=== PATIENT | female | born 1940 | race Asian ===

== ENCOUNTER 2018-07-13 08:48 | Inpatient (IN) | payer OTHER ==
[2018-07-13 09:40] LABS: ADD MAN DIFF? NO
[2018-07-13 09:41] LABS: ABNORMAL IP MESSAGE 1; BASOPHILS % 0.5 % (0.0-2.0); EOSINOPHILS % 0.4 % (0.0-7.0); HEMATOCRIT 34.3 % (37.0-47.0); HEMOGLOBIN 11.6 g/dl (12.0-16.0); LYMPHOCYTES # 1.3 10^3/ul (0.8-2.9); LYMPHOCYTES % 17.3 % (15.0-51.0); MEAN CORPUSCULAR HEMOGLOBIN 30.3 pg (29.0-33.0); MEAN CORPUSCULAR HGB CONC 33.8 g/dl (32.0-37.0); MEAN CORPUSCULAR VOLUME 89.6 fl (82.0-101.0); MONOCYTE # 0.4 10^3/ul (0.3-0.9); MONOCYTES % 5.7 % (0.0-11.0); NEUTROPHIL # 5.6 10^3/ul (1.6-7.5); NEUTROPHILS % 75.8 % (39.0-77.0); PLATELET COUNT 109 10^3/UL (140-415); RED BLOOD COUNT 3.83 10^6/ul (4.20-5.40); RED CELL DISTRIBUTION WIDTH 13.3 % (11.5-14.5)
[2018-07-13 09:41] LABS: WHITE BLOOD COUNT 7.4 10^3/ul (4.8-10.8)
[2018-07-13 09:44] LABS: POSITIVE DIFF @See below
[2018-07-13 10:01] LABS: ANION GAP 8 (5-13); BLOOD UREA NITROGEN 21 mg/dl (7-20); CALCIUM 9.2 mg/dl (8.4-10.2); CARBON DIOXIDE 30 mmol/L (21-31); CHLORIDE 102 mmol/L (97-110); CREATININE 0.85 mg/dl (0.44-1.00); GLUCOSE 113 mg/dl (70-220); POTASSIUM 3.9 mmol/L (3.5-5.1); SODIUM 140 mmol/L (135-144)
[2018-07-13 10:12] LABS: TROPONIN-I < 0.012 ng/ml (0.000-0.120)
[2018-07-13] MEDS ORDERED: DOCUSATE SODIUM 100 MG CAP PO (10:30)
[2018-07-13] MEDS: METOPROLOL (XL) 50 MG TAB PO ×2 (10:30→10:33)
[2018-07-13] MEDS ORDERED: NITROGLYCERIN (SL) 0.4 MG TAB SL (10:30)
[2018-07-13] MEDS ORDERED: ACETAMINOPHEN 325 MG TAB PO ×2 (10:30→11:00)
[2018-07-13] MEDS ORDERED: morphine 2 MG INJ IV (10:30)
[2018-07-13] MEDS ORDERED: HYDROCODONE/APAP (5/325) TAB PO (10:30)
[2018-07-13] MEDS ORDERED: NACL 0.9% 3 ML SYG IV (10:30)
[2018-07-13] MEDS: DILTIAZEM (SR) 60 MG CAP PO (10:30)
[2018-07-13] MEDS ORDERED: ONDANSETRON 4 MG INJ IV ×2 (10:30→11:00)
[2018-07-13] MEDS: APIXABAN 5 MG TABLET PO ×2 (10:32→21:33)
[2018-07-13] MEDS: DILTIAZEM 30 MG TAB PO (10:33)
[2018-07-13] MEDS: DILTIAZEM (SR) 90 MG CAP PO (10:35)
[2018-07-13] MEDS ORDERED: DILTIAZEM (SR) 60 MG CAP PO (10:37)
[2018-07-13] MEDS ORDERED: DILTIAZEM 30 MG TAB PO (10:38)
[2018-07-13] MEDS: BENAZEPRIL 10 MG TAB PO (10:39)
[2018-07-13 16:33] LABS: CREATINE KINASE 84 IU/L (23-200)
[2018-07-13 16:46] LABS: CK INDEX 0.7; TROPONIN-I < 0.012 ng/ml (0.000-0.120)
[2018-07-13] MEDS ORDERED: CALCIUM CARBONATE 600 MG PO (21:00)
[2018-07-13] MEDS: FAMOTIDINE 20 MG TAB PO (21:33)
[2018-07-14 06:30] LABS: WHITE BLOOD COUNT 6.9 10^3/ul (4.8-10.8)
[2018-07-14 06:30] LABS: ABNORMAL IP MESSAGE 1; HEMATOCRIT 34.6 % (37.0-47.0); HEMOGLOBIN 11.5 g/dl (12.0-16.0); MEAN CORPUSCULAR HEMOGLOBIN 30.3 pg (29.0-33.0); MEAN CORPUSCULAR HGB CONC 33.2 g/dl (32.0-37.0); MEAN CORPUSCULAR VOLUME 91.1 fl (82.0-101.0); MEAN PLATELET VOLUME 12.3 fl (7.4-10.4); PLATELET COUNT 52 10^3/UL (140-415); RED CELL DISTRIBUTION WIDTH 13.7 % (11.5-14.5)
[2018-07-14 06:51] LABS: ADD MAN DIFF? YES; POSITIVE DIFF @See below
[2018-07-14 07:07] LABS: HEMOGLOBIN A1C 5.7 % (0-5.9)
[2018-07-14 07:09] LABS: ALANINE AMINOTRANSFERASE 10 IU/L (13-69); ALBUMIN 3.4 g/dl (3.3-4.9); ALBUMIN/GLOBULIN RATIO 1.25; ALKALINE PHOSPHATASE 43 IU/L (42-121); ANION GAP 8 (5-13); ASPARTATE AMINO TRANSFERASE 21 IU/L (15-46); BILIRUBIN,INDIRECT 0.5 mg/dl (0-1.1); BILIRUBIN,TOTAL 0.5 mg/dl (0.2-1.3); BLOOD UREA NITROGEN 19 mg/dl (7-20); CALCIUM 8.9 mg/dl (8.4-10.2); CARBON DIOXIDE 33 mmol/L (21-31); CHLORIDE 102 mmol/L (97-110); CHOL/HDL RATIO 3.3 RATIO; CHOLESTEROL 170 mg/dl (100-200); CREATININE 1.02 mg/dl (0.44-1.00); GLUCOSE 89 mg/dl (70-220); HDL CHOLESTEROL 51 mg/dl (33-92); LDL CHOLESTEROL,CALCULATED 102 mg/dl; MAGNESIUM 2.2 mg/dl (1.7-2.5); PHOSPHORUS 4.4 mg/dl (2.5-4.9); POTASSIUM 3.6 mmol/L (3.5-5.1); SODIUM 143 mmol/L (135-144); TOTAL PROTEIN 6.1 g/dl (6.1-8.1); TRIGLYCERIDES 87 mg/dl (0-149)
[2018-07-14] MEDS: FAMOTIDINE 20 MG TAB PO (08:23)
[2018-07-14] MEDS: APIXABAN 5 MG TABLET PO (08:23)
[2018-07-14] MEDS: METOPROLOL (XL) 50 MG TAB PO (08:23)
[2018-07-14] MEDS: DILTIAZEM 30 MG TAB PO (08:24)
[2018-07-14] MEDS: BENAZEPRIL 10 MG TAB PO (08:25)
[2018-07-14 09:55] LABS: EOSINOPHILS % (M) 1 % (0-7); LYMPHOCYTES #M 2.5 10^3/ul (0.8-2.9); LYMPHOCYTES % (M) 37 % (15-51); MONOCYTE #M 0.3 10^3/ul (0.3-0.9); MONOCYTES % (M) 5 % (0-11); PLATELET ESTIMATE DECREASED; PLATELET MORPHOLOGY COMMENT @See below; SEGMENTED NEUTROPHILS (M) % 57 % (39-77); SMUDGE%M 9 % (0-0)
[2018-07-14 13:32] LABS: TROPONIN-I < 0.012 ng/ml (0.000-0.120)
[2018-07-14] MEDS ORDERED: DILTIAZEM 30 MG TAB PO (21:00)
== END 2018-07-14 16:00 | disposition home or self-care (01) | DRG 310 ==
LOC: 6WM 15:38 → E/R 08:48 → 6WM 10:34
DX: I48.2 Chronic atrial fibrillation (principal); I10 Essential (primary) hypertension; E78.5 Hyperlipidemia, unspecified; R07.9 Chest pain, unspecified; Z79.01 Long term (current) use of anticoagulants
CPT/HCPCS: 36415; 71045; 80048; 80053; 80061; 82550; 82553; 83036; 83735; 84100; 84443; 84484; 85025; 90686; 93005; 93306; 99285-25

== ENCOUNTER 2018-08-11 21:25 | Inpatient (IN) | payer OTHER ==
[2018-08-11 22:04] LABS: ADD MAN DIFF? NO
[2018-08-11 22:06] LABS: WHITE BLOOD COUNT 12.7 10^3/ul (4.8-10.8)
[2018-08-11 22:06] LABS: ABNORMAL IP MESSAGE 1; BASOPHILS % 0.2 % (0.0-2.0); HEMATOCRIT 34.4 % (37.0-47.0); HEMOGLOBIN 11.5 g/dl (12.0-16.0); LYMPHOCYTES # 0.7 10^3/ul (0.8-2.9); LYMPHOCYTES % 5.7 % (15.0-51.0); MEAN CORPUSCULAR HEMOGLOBIN 30.1 pg (29.0-33.0); MEAN CORPUSCULAR HGB CONC 33.4 g/dl (32.0-37.0); MEAN CORPUSCULAR VOLUME 90.1 fl (82.0-101.0); MEAN PLATELET VOLUME 11.7 fl (7.4-10.4); MONOCYTE # 0.5 10^3/ul (0.3-0.9); MONOCYTES % 4.2 % (0.0-11.0); NEUTROPHIL # 11.3 10^3/ul (1.6-7.5); NEUTROPHILS % 89.5 % (39.0-77.0); PLATELET COUNT 49 10^3/UL (140-415); RED BLOOD COUNT 3.82 10^6/ul (4.20-5.40); RED CELL DISTRIBUTION WIDTH 13.5 % (11.5-14.5)
[2018-08-11 22:18] LABS: POSITIVE DIFF @See below
[2018-08-11 22:24] LABS: ALANINE AMINOTRANSFERASE 12 IU/L (13-69); ALBUMIN 3.9 g/dl (3.3-4.9); ALBUMIN/GLOBULIN RATIO 1.14; ALKALINE PHOSPHATASE 58 IU/L (42-121); ANION GAP 10 (5-13); ASPARTATE AMINO TRANSFERASE 24 IU/L (15-46); BILIRUBIN,INDIRECT 0.6 mg/dl (0-1.1); BILIRUBIN,TOTAL 0.6 mg/dl (0.2-1.3); BLOOD UREA NITROGEN 30 mg/dl (7-20); CALCIUM 9.3 mg/dl (8.4-10.2); CARBON DIOXIDE 30 mmol/L (21-31); CHLORIDE 97 mmol/L (97-110); CREATININE 1.49 mg/dl (0.44-1.00); LIPASE 61 U/L (23-300); POTASSIUM 3.3 mmol/L (3.5-5.1); SODIUM 137 mmol/L (135-144); TOTAL PROTEIN 7.3 g/dl (6.1-8.1)
[2018-08-11] MEDS: CEFEPIME 2GM/50 ML (PMX) 50 ML IVPB (22:26)
[2018-08-11] MEDS: ACETAMINOPHEN 325 MG TAB PO (22:28)
[2018-08-11 22:29] LABS: GLUCOSE 173 mg/dl (70-220)
[2018-08-11 22:35] LABS: TROPONIN-I < 0.012 ng/ml (0.000-0.120)
[2018-08-11 22:38] LABS: INR 1.27; PT RATIO 1.3
[2018-08-11 22:39] LABS: PARTIAL THROMBOPLASTIN TIME 37.8 Sec (23.0-35.0)
[2018-08-11] MEDS: SODIUM CHLORIDE 0.9% 1L BAG IV* (22:39)
[2018-08-11] MEDS ORDERED: ONDANSETRON 4 MG INJ IV (23:00)
[2018-08-11] MEDS ORDERED: ACETAMINOPHEN 325 MG TAB PO (23:00)
[2018-08-11] MEDS: VANCOMYCIN 1 GM (PMX) 250 ML IVPB (23:03)
[2018-08-12 00:27] LABS: ADD UMIC YES; UR ASCORBIC ACID NEGATIVE (NEGATIVE); UR BILIRUBIN (Dip) NEGATIVE (NEGATIVE); UR BLOOD (Dip) NEGATIVE (NEGATIVE); UR CLARITY CLEAR (CLEAR); UR COLOR YELLOW (YELLOW); UR GLUCOSE (Dip) 1+ mg/dL (NEGATIVE); UR KETONES (Dip) TRACE mg/dL (NEGATIVE); UR LEUKOCYTE ESTERASE (Dip) 1+ Leu/ul (NEGATIVE); UR MUCUS FEW /HPF (NONE SEEN); UR NITRITE (Dip) NEGATIVE (NEGATIVE); UR RBC 1 /HPF (0-5); UR SPECIFIC GRAVITY (Dip) 1.017 (1.003-1.030); UR TOTAL PROTEIN (Dip) NEGATIVE (NEGATIVE); UR UROBILINOGEN (Dip) NEGATIVE (NEGATIVE); UR WBC 8 /HPF (0-5)
[2018-08-12] MEDS ORDERED: FENTAnyl 50 MCG/ML VIAL (01:29)
[2018-08-12] MEDS ORDERED: LIDOCAINE 2% (SDV) 5 ML INJ (01:29)
[2018-08-12] MEDS ORDERED: hydrALAzine 20 MG INJ IV (01:30)
[2018-08-12] MEDS ORDERED: HYDROmorphONE 1 MG/5 ML IV SYRINGE IV ×2 (01:30)
[2018-08-12] MEDS ORDERED: FENTAnyl 50 MCG/ML VIAL IV (01:30)
[2018-08-12] MEDS ORDERED: LABETALOL HCL 20MG INJ IV (01:30)
[2018-08-12] MEDS ORDERED: ONDANSETRON 4 MG INJ IV ×2 (01:30→03:00)
[2018-08-12] MEDS ORDERED: MEPERIDINE 25 MG INJ IV (01:30)
[2018-08-12] MEDS ORDERED: PROCHLORPERAZINE 10 MG INJ IV (01:30)
[2018-08-12] MEDS ORDERED: DIPHENHYDRAMINE 50 MG INJ IV (01:30)
[2018-08-12] MEDS ORDERED: FAMOTIDINE 20 MG INJ (01:34)
[2018-08-12] MEDS ORDERED: PHENYLephrine (100 MCG/ML) 10ML SYG ×2 (01:39→02:43)
[2018-08-12 01:50] LABS: LACTIC ACID 1.4 mmol/L (0.5-2.0)
[2018-08-12] MEDS ORDERED: PROPOFOL 20 ML (02:05)
[2018-08-12] MEDS ORDERED: SUCCINYLCHOLINE CHLORIDE 100 MG/5 ML SYG IV (02:05)
[2018-08-12] MEDS ORDERED: ROCURONIUM 50 MG INJ (02:05)
[2018-08-12] MEDS ORDERED: ONDANSETRON 4 MG INJ (02:06)
[2018-08-12] MEDS ORDERED: DEXAMETHASONE 4 MG/ML 5 ML INJ (02:06)
[2018-08-12] MEDS: BUPIVACAINE 0.5%/EPI (SDV) 30 ML INJ (02:14)
[2018-08-12] MEDS: LIDOCAINE 1% (MPF) 30 ML INJ (02:14)
[2018-08-12] MEDS ORDERED: GLYCOPYRROLATE 0.4 MG INJ (02:32)
[2018-08-12] MEDS ORDERED: NEOSTIGMINE 3 MG/3 ML SYRINGE (02:32)
[2018-08-12] MEDS ORDERED: ACETAMINOPHEN 325 MG TAB PO (03:00)
[2018-08-12] MEDS ORDERED: EPHEDrine SULFATE 50 MG/5 ML SYG IV (03:00)
[2018-08-12] MEDS ORDERED: HYDROmorphONE 0.5 MG/0.5 ML SYG IV (03:00)
[2018-08-12] MEDS ORDERED: METOCLOPRAMIDE 10 MG INJ IV (03:00)
[2018-08-12] MEDS: D5W-0.45 NACL + KCL 20 MEQ 1,000 ML IV ×4 (04:07→22:47)
[2018-08-12] MEDS ORDERED: NITROGLYCERIN (SL) 0.4 MG TAB SL (05:00)
[2018-08-12] MEDS: SOD CHLORIDE 0.9% 250 ML IV (05:15)
[2018-08-12] MEDS: PIPER-TAZO 3.375 GM IV (PMX) 100 ML IVPB ×4 (05:16→23:42)
[2018-08-12 06:13] LABS: ALANINE AMINOTRANSFERASE 17 IU/L (13-69); ALBUMIN 3.1 g/dl (3.3-4.9); ALBUMIN/GLOBULIN RATIO 1.03; ALKALINE PHOSPHATASE 39 IU/L (42-121); ANION GAP 9 (5-13); ASPARTATE AMINO TRANSFERASE 21 IU/L (15-46); BILIRUBIN,INDIRECT 0.5 mg/dl (0-1.1); BILIRUBIN,TOTAL 0.5 mg/dl (0.2-1.3); BLOOD UREA NITROGEN 23 mg/dl (7-20); CALCIUM 7.9 mg/dl (8.4-10.2); CARBON DIOXIDE 28 mmol/L (21-31); CHLORIDE 102 mmol/L (97-110); CREATININE 0.95 mg/dl (0.44-1.00); GLUCOSE 163 mg/dl (70-220); POTASSIUM 3.5 mmol/L (3.5-5.1); SODIUM 139 mmol/L (135-144); TOTAL PROTEIN 6.1 g/dl (6.1-8.1)
[2018-08-12] MEDS: FAMOTIDINE 20 MG INJ IV ×2 (08:09→21:26)
[2018-08-12] MEDS: GUAIFENESIN/DM 5ML CUP PO (17:33)
[2018-08-13] MEDS: GUAIFENESIN/DM 5ML CUP PO ×2 (01:53→21:56)
[2018-08-13] MEDS: D5W-0.45 NACL + KCL 20 MEQ 1,000 ML IV ×2 (03:39→16:10)
[2018-08-13] MEDS: PIPER-TAZO 3.375 GM IV (PMX) 100 ML IVPB ×4 (05:11→23:39)
[2018-08-13 05:20] LABS: WHITE BLOOD COUNT 12.5 10^3/ul (4.8-10.8)
[2018-08-13 05:20] LABS: ABNORMAL IP MESSAGE 1; HEMATOCRIT 32.4 % (37.0-47.0); HEMOGLOBIN 10.7 g/dl (12.0-16.0); MEAN CORPUSCULAR HEMOGLOBIN 30.6 pg (29.0-33.0); MEAN CORPUSCULAR VOLUME 92.6 fl (82.0-101.0); MEAN PLATELET VOLUME 13.3 fl (7.4-10.4); RED CELL DISTRIBUTION WIDTH 14.1 % (11.5-14.5)
[2018-08-13 05:36] LABS: POSITIVE DIFF @See below
[2018-08-13 05:37] LABS: ADD MAN DIFF? YES
[2018-08-13 06:51] LABS: BAND NEUTROPHILS #M 2.8 10^3/ul (0.0-0.6); BAND NEUTROPHILS % (M) 23 % (0-4); GIANT THROMBO% (M) 1 % (0-0); LYMPHOCYTES #M 2.3 10^3/ul (0.8-2.9); LYMPHOCYTES % (M) 19 % (15-51); MONOCYTE #M 0.2 10^3/ul (0.3-0.9); MONOCYTES % (M) 2 % (0-11); PLATELET ESTIMATE NORMAL; REACTIVE LYMPHOCYTES #M 0.6 10^3/ul (0.0-0.0); REACTIVE LYMPHOCYTES% (M) 5 % (0-0); SEG NEUT #M 6.7 10^3/ul (1.6-7.5); SEGMENTED NEUTROPHILS (M) % 51 % (39-77); SMUDGE%M 9 % (0-0)
[2018-08-13 06:59] LABS: PLATELET COUNT 214 10^3/UL (140-415)
[2018-08-13] MEDS: FAMOTIDINE 20 MG INJ IV ×2 (08:30→09:00)
[2018-08-14] MEDS: D5W-0.45 NACL + KCL 20 MEQ 1,000 ML IV ×3 (05:12→17:29)
[2018-08-14] MEDS: PIPER-TAZO 3.375 GM IV (PMX) 100 ML IVPB ×2 (05:38→12:12)
[2018-08-14 06:25] LABS: ADD MAN DIFF? NO
[2018-08-14 06:31] LABS: ABNORMAL IP MESSAGE 1; BASOPHILS % 0.3 % (0.0-2.0); EOSINOPHILS # 0.1 10^3/ul (0.0-0.5); EOSINOPHILS % 1.2 % (0.0-7.0); HEMATOCRIT 32.2 % (37.0-47.0); HEMOGLOBIN 10.4 g/dl (12.0-16.0); LYMPHOCYTES # 0.9 10^3/ul (0.8-2.9); LYMPHOCYTES % 7.4 % (15.0-51.0); MEAN CORPUSCULAR HEMOGLOBIN 29.9 pg (29.0-33.0); MEAN CORPUSCULAR HGB CONC 32.3 g/dl (32.0-37.0); MEAN CORPUSCULAR VOLUME 92.5 fl (82.0-101.0); MEAN PLATELET VOLUME 12.5 fl (7.4-10.4); MONOCYTE # 0.4 10^3/ul (0.3-0.9); MONOCYTES % 3.3 % (0.0-11.0); NEUTROPHIL # 10.2 10^3/ul (1.6-7.5); PLATELET COUNT 46 10^3/UL (140-415); RED BLOOD COUNT 3.48 10^6/ul (4.20-5.40); RED CELL DISTRIBUTION WIDTH 14.3 % (11.5-14.5)
[2018-08-14 06:31] LABS: WHITE BLOOD COUNT 11.7 10^3/ul (4.8-10.8)
[2018-08-14 06:49] LABS: ALANINE AMINOTRANSFERASE 14 IU/L (13-69); ALBUMIN 2.8 g/dl (3.3-4.9); ALKALINE PHOSPHATASE 61 IU/L (42-121); ANION GAP 5 (5-13); ASPARTATE AMINO TRANSFERASE 16 IU/L (15-46); BILIRUBIN,INDIRECT 0.1 mg/dl (0-1.1); BILIRUBIN,TOTAL 0.1 mg/dl (0.2-1.3); BLOOD UREA NITROGEN 14 mg/dl (7-20); CARBON DIOXIDE 28 mmol/L (21-31); CHLORIDE 107 mmol/L (97-110); CREATININE 0.89 mg/dl (0.44-1.00); GLUCOSE 113 mg/dl (70-220); POTASSIUM 4.1 mmol/L (3.5-5.1); SODIUM 140 mmol/L (135-144); TOTAL PROTEIN 5.6 g/dl (6.1-8.1)
[2018-08-14 06:59] LABS: MAGNESIUM 2.1 mg/dl (1.7-2.5)
[2018-08-14 07:05] LABS: POSITIVE DIFF @See below
[2018-08-14] MEDS ORDERED: HYDROCODONE/APAP (10/325) TAB PO (09:00)
[2018-08-14] MEDS: FAMOTIDINE 20 MG INJ IV (09:36)
[2018-08-14 17:28] LABS: PLATELET COUNT 56 10^3/UL (140-415)
[2018-08-14] MEDS: CEFTRIAXONE 2 GM/50 ML (PMX) 50 ML IVPB (17:31)
[2018-08-14] MEDS: DILTIAZEM (SR) 60 MG CAP PO (17:39)
[2018-08-14] MEDS: METOPROLOL (XL) 50 MG TAB PO (17:40)
[2018-08-14] MEDS: METOPROLOL (XL) 25 MG TAB PO (20:11)
[2018-08-14] MEDS: APIXABAN 5 MG TABLET PO (20:11)
[2018-08-15 05:14] LABS: ADD MAN DIFF? NO
[2018-08-15 05:37] LABS: BASOPHILS % 0.5 % (0.0-2.0); EOSINOPHILS # 0.3 10^3/ul (0.0-0.5); HEMATOCRIT 32.7 % (37.0-47.0); HEMOGLOBIN 10.6 g/dl (12.0-16.0); LYMPHOCYTES # 1.2 10^3/ul (0.8-2.9); MEAN CORPUSCULAR HEMOGLOBIN 29.9 pg (29.0-33.0); MEAN CORPUSCULAR HGB CONC 32.4 g/dl (32.0-37.0); MEAN CORPUSCULAR VOLUME 92.1 fl (82.0-101.0); MEAN PLATELET VOLUME 11.9 fl (7.4-10.4); MONOCYTE # 0.6 10^3/ul (0.3-0.9); MONOCYTES % 6.5 % (0.0-11.0); NEUTROPHIL # 6.7 10^3/ul (1.6-7.5); NEUTROPHILS % 75.4 % (39.0-77.0); PLATELET COUNT 106 10^3/UL (140-415); RED BLOOD COUNT 3.55 10^6/ul (4.20-5.40); RED CELL DISTRIBUTION WIDTH 14.2 % (11.5-14.5)
[2018-08-15 05:37] LABS: WHITE BLOOD COUNT 8.9 10^3/ul (4.8-10.8)
[2018-08-15 06:00] LABS: ALANINE AMINOTRANSFERASE 14 IU/L (13-69); ALBUMIN 2.9 g/dl (3.3-4.9); ALBUMIN/GLOBULIN RATIO 0.93; ALKALINE PHOSPHATASE 57 IU/L (42-121); ANION GAP 5 (5-13); ASPARTATE AMINO TRANSFERASE 15 IU/L (15-46); BILIRUBIN,INDIRECT 0.1 mg/dl (0-1.1); BILIRUBIN,TOTAL 0.1 mg/dl (0.2-1.3); BLOOD UREA NITROGEN 12 mg/dl (7-20); CALCIUM 8.2 mg/dl (8.4-10.2); CARBON DIOXIDE 27 mmol/L (21-31); CHLORIDE 106 mmol/L (97-110); CREATININE 0.77 mg/dl (0.44-1.00); GLUCOSE 94 mg/dl (70-220); POTASSIUM 3.9 mmol/L (3.5-5.1); SODIUM 138 mmol/L (135-144)
[2018-08-15 06:09] LABS: TROPONIN-I < 0.012 ng/ml (0.000-0.120)
[2018-08-15] MEDS: APIXABAN 5 MG TABLET PO (08:41)
[2018-08-15] MEDS: METOPROLOL (XL) 50 MG TAB PO (08:41)
[2018-08-15] MEDS: DILTIAZEM (SR) 60 MG CAP PO (08:42)
[2018-08-15] MEDS: CIPROFLOXACIN 500 MG TAB PO (12:45)
[2018-08-15] MEDS ORDERED: metroNIDAZOLE 500 MG TAB PO (14:00)
[2018-08-16] MEDS ORDERED: LACTOBACILLUS RHAMNOSUS CAP PO (21:00)
== END 2018-08-15 13:25 | disposition home or self-care (01) | DRG 339 ==
LOC: SDS 08-12 00:30 → E/R 21:25 → 6WM 08-12 03:29 → SDS 08-12 03:40 → 6WM 08-12 03:42 → SDS 08-12 03:29 → 6WM 22:58
PROC: 0DTJ4ZZ Resection of Appendix, Percutaneous Endoscopic Approach (ICD-10-PCS; principal; 2018-08-12 01:30)
DX: K35.32 Acute appendicitis with perforation, localized peritonitis, and gangrene, without abscess (principal); J98.11 Atelectasis; I10 Essential (primary) hypertension; E78.5 Hyperlipidemia, unspecified; I48.2 Chronic atrial fibrillation; K80.20 Calculus of gallbladder without cholecystitis without obstruction
CPT/HCPCS: 36415; 71045; 74176; 80053; 81001; 83605; 83690; 83735; 84484; 85025; 85049; 85610; 85730; 86850; 86900; 86901; 87040; 87070; 87075; 87086; 87102; 88304; 93005; 96374; 97116; 97161; 97530; 99291-25